=== PATIENT | female | born 1955 | race African-American/Black ===

== ENCOUNTER → 2016-08-11 | Outpatient (CLI) | payer OTHER ==
--- NOTE | 2016-08-11 11:31 | KCIC ---
Bilateral digital screening mammograms with CAD: HISTORY COMPARISON Comparison is made to previous studies dated 05/06/2014 and 04/02/2013. FINDINGS Breast density category B. The skin and nipples show no abnormalities. No abnormal lymph nodes are seen in the axilla. The breast parenchyma shows scattered fibroglandular density. There are no dominant masses, suspicious calcifications or architectural distortions. Benign appearing calcifications are present IMPRESSION No evidence of malignancy. Recommend routine annual mammographic screening. This study was interpreted with the benefit of Computerized Aided Detection (CAD). Mammography is not 100% sensitive in detecting breast cancer. Therefore, a self breast exam and a clinical breast exam are very important. A negative mammogram does not negate a clinically suspicious finding and should not result in a delay in biopsying a clinically suspicious abnormality. BI-RADS category 2. Benign. This patient's information has been entered into a reminder system for the patient to be notified with the results of this examination and a target date for her next mammograms. Electronically signed by: Nicol Castillo MD (Aug 11, 2016 11:29:22)
== END | disposition home or self-care (01) ==
LOC: KCIC MAMMO 07:48
PROVIDERS: ATTEND Obstetrics & Gynecology Gynecology
DX: Z12.31 Encounter for screening mammogram for malignant neoplasm of breast (principal)
CPT/HCPCS: G0202; 77067

== ENCOUNTER → 2018-04-19 | Outpatient (CLI) | payer OTHER ==
--- NOTE | 2018-04-19 12:06 | KCIC ---
Bilateral digital screening mammograms: Reason for examination: Routine screening. Comparison is made to previous studies dated 08/11/2016 and 05/06/2014. Interpretation was made with the benefit of CAD. The skin and nipples show no abnormalities. No abnormal axillary lymph nodes are seen. The breast parenchyma is heterogeneously dense. (Breast density: Category C) There continues to be a small nodular asymmetry anterior medially in the right breast seen best on CC view but probably at the 2:00 position which is stable. There are no new dominant masses, suspicious calcifications or architectural distortion. Scattered benign calcifications are again seen. Impression: No evidence of malignancy. Recommend routine screening. Your patient's mammogram demonstrates that she has dense breast tissue (breast density category C or D), which could hide abnormalities, and if she has other risk factors for breast cancer that have been identified, she might benefit from supplemental screening tests that may be suggested by you as her ordering physician. Dense breast tissue, in and of itself, is a relatively common condition. Therefore, this information is not provided to cause undue concern, but rather to raise your awareness and to promote discussion with your patient regarding the presence of other risk factors, in addition to dense breast tissue. Your patient's mammography results will be sent to her. BI-RADS Category 2: Benign. "Our facility is accredited by the [employer] Mammography [employer]." This patient's information has been entered into a reminder system for the patient to be notified with the results of her examination and a target date for the next mammogram. Electronically signed by: Violette Castillo MD (04/19/2018 12:02 PM) [id number]
== END | disposition home or self-care (01) ==
LOC: KCIC MAMMO 08:01
PROVIDERS: ATTEND Obstetrics & Gynecology Gynecology
DX: Z12.31 Encounter for screening mammogram for malignant neoplasm of breast (principal)
CPT/HCPCS: 77067

== ENCOUNTER → 2019-04-24 | Outpatient (CLI) | payer BC ==
--- NOTE | 2019-04-24 10:16 | KCIC ---
Bilateral digital screening mammograms with 3-D tomosynthesis: Reason for examination: Routine screening. Comparison is made to previous studies dated 04/19/2018 and 08/11/2016. Bilateral mammograms in CC and oblique projections were obtained with 2-D imaging and 3-D tomosynthesis imaging on a Siemens Inspiration unit and reviewed on the workstation. Interpretation was made with the benefit of CAD. The skin and nipples show no abnormalities. No abnormal axillary lymph nodes are seen. The breast parenchyma is heterogeneously dense. (Breast density: Category C.) There continue to be small nodular parenchymal densities bilaterally which are stable. There are no new dominant masses, suspicious calcifications or architectural distortion. Benign calcifications are present. Impression: No evidence of malignancy. Recommend routine screening. Your patient's mammogram demonstrates that she has dense breast tissue (breast density category C or D), which could hide abnormalities, and if she has other risk factors for breast cancer that have been identified, she might benefit from supplemental screening tests that may be suggested by you as her ordering physician. Dense breast tissue, in and of itself, is a relatively common condition. Therefore, this information is not provided to cause undue concern, but rather to raise your awareness and to promote discussion with your patient regarding the presence of other risk factors, in addition to dense breast tissue. Your patient's mammography results will be sent to her. BI-RAD Category 2: Benign. "Our facility is accredited by the [employer] Mammography [employer]." This patient's information has been entered into a reminder system for the patient to be notified with the results of her examination and a target date for the next mammogram. Electronically signed by: Violette Castillo MD (04/24/2019 10:13 AM) [id number]
== END | disposition home or self-care (01) ==
LOC: KCIC MAMMO 07:55
PROVIDERS: ATTEND Obstetrics & Gynecology Gynecology
DX: Z12.31 Encounter for screening mammogram for malignant neoplasm of breast (principal); N64.89 Other specified disorders of breast
CPT/HCPCS: 77063; 77067

== ENCOUNTER → 2020-05-05 | Outpatient (CLI) | payer BC ==
--- NOTE | 2020-05-05 12:31 | KCIC ---
EXAM: Bilateral digital screening mammogram with tomosynthesis. HISTORY: 64-year-old female presents for screening mammography. TECHNIQUE: Full-field digital craniocaudal and mediolateral oblique 2D and 3D tomosynthesis images of both breasts are obtained for evaluation. Computer aided detection was applied. COMPARISON: 04/24/2019 BREAST PARENCHYMAL DENSITY: Level C - Heterogeneously dense. FINDINGS: There is no new suspicious mass, microcalcification or region of architectural distortion. There are scattered areas of nodularity and asymmetry within both breasts which are benign in appeara nce. There are few benign calcifications. IMPRESSION: BI-RADS Category 2: Benign finding(s). RECOMMENDATION: Annual mammography is recommended. If your mammogram demonstrates that you have dense breast tissue, which could hide abnormalities, and if you have other risk factors for breast cancer that have been identified, you might benefit from s upplemental screening tests that may be suggested by your ordering physician. Dense breast tissue, i n and of itself, is a relatively common condition. This information is not provided to cause undue c oncern, but rather to raise your awareness and to promote discussion with your physician regarding th e presence of other risk factors, in addition to dense breast tissue. A report of your mammography re sults will be sent to you and your physician. You should contact your physician if you have any ques tions or concerns regarding this report. Mammography is a sensitive method for finding small breast cancers, but it does not detect them all a nd is not a substitute for careful clinical examination. A negative mammogram does not negate a clin ically suspicious finding and should not result in delay in biopsying a clinically suspicious abnorma lity. PQRS compliance statement - Patient information was entered into a reminder system with a target due date for the next mammogram. "Our facility is accredited by the [employer] Mammography [employer]." Electronically signed by: Rola Barriga MD (05/05/2020 12:29 PM) [id number]
== END ==
LOC: KCIC MAMMO 10:36
PROVIDERS: ATTEND Obstetrics & Gynecology Gynecology
DX: Z12.31 Encounter for screening mammogram for malignant neoplasm of breast (principal)
CPT/HCPCS: 77063; 77067

== ENCOUNTER → 2021-05-05 | Outpatient (CLI) | payer BC ==
--- NOTE | 2021-05-05 16:14 | KCIC ---
Bilateral digital screening mammograms with 3-D tomosynthesis: Reason for examination: Routine screening. Comparison is made to previous studies dated back to 08/11/2016. Bilateral mammograms in CC and oblique projections were obtained with 2-D imaging and 3-D tomosynthes is imaging on a Siemens Inspiration unit and reviewed on the workstation. Interpretation was made wit h the benefit of CAD. The skin and nipples show no abnormalities. No abnormal axillary lymph nodes are seen. The breast par enchyma is heterogeneously dense. (Breast density: Category C.) There appear to be small nodular pare nchymal densities bilaterally. The largest is located posterior laterally in the left breast on cc vi ew at approximately the 3:00 position 12 cm from the nipple and measuring 2.4 cm in greatest dimensio n. This may represent a fibroadenoma. There is a 5 5 mm nodule in the right breast at approximately t he 9:00 position 12 cm from the nipple. There is a 5 mm nodule 11 cm from the nipple at approximately the 6:00 position of the right breast. There is a 7.9 mm nodule at approximately the 2:00 position o f the right breast 9 cm from the nipple. There also appear to be nodules at the 1:00 position 5.5 cm from the nipple in the left breast measuring 8.7 mm size and at the 11:00 position 5 cm from the nipp le in the left breast measuring 9 mm in size. Further evaluation of both breasts with ultrasound is r ecommended. There are no suspicious calcifications seen. There are however scattered benign calcifica tions seen bilaterally. Impression: Nodular densities bilaterally in the breasts. Recommend further evaluation with ultrasound. Your patient's mammogram demonstrates that she has dense breast tissue (breast density category C or D), which could hide abnormalities, and if she has other risk factors for breast cancer that have bee n identified, she might benefit from supplemental screening tests that may be suggested by you as her ordering physician. Dense breast tissue, in and of itself, is a relatively common condition. Therefo re, this information is not provided to cause undue concern, but rather to raise your awareness and t o promote discussion with your patient regarding the presence of other risk factors, in addition to d ense breast tissue. Your patient's mammography results will be sent to her. BI-RAD Category 0: Incomplete. Needs additional imaging evaluation. "Our facility is accredited by the [employer] Mammography Program." This patient's information has been entered into a reminder system for the patient to be notified wit h the results of her examination and a target date for the next mammogram. Electronically signed by: Violette Castillo MD (05/05/2021 4:12 PM) [id number]
== END ==
LOC: KCIC MAMMO 13:52
PROVIDERS: ATTEND Obstetrics & Gynecology Gynecology
DX: Z12.31 Encounter for screening mammogram for malignant neoplasm of breast (principal)
CPT/HCPCS: 77063; 77067

== ENCOUNTER → 2021-05-19 | Outpatient (CLI) | payer BC ==
--- NOTE | 2021-05-19 12:15 | KCIC ---
Bilateral breast ultrasound: Reason for examination: Nodules bilaterally on screening mammogram. Comparison is made to mammographic exam dated 05/05/2021. Bilateral whole breast ultrasound including evaluation of all 4 quadrants and the retroareolar and ax illary regions of both breasts was performed. In the right breast at the 2:00 position 9.5 cm from the nipple, there is a 6.7 x 4.8 mm hypoechoic f ibrocystic type nodule with no abnormal vascularity and line in parallel orientation. At the 6:00 pos ition 4.5 cm from the nipple, there is a 5.2 x 5 mm hypoechoic fibrocystic type nodule with no abnorm al vascularity. At the 9:00 position 9 cm from the nipple, there appear to be 2 small nodules. One no dule has a fibrocystic appearance with no abnormal vascularity and measures 6.2 mm in greatest dimens ion. The second nodule has a more cystic appearance measuring 8.9 mm in greatest dimension. No suspic ious nodules are seen. No abnormal appearing lymph nodes are seen in the axilla. In the left breast at the 1:00 position 5.5 cm from the nipple, there is a small 5.7 mm hypoechoic fi brocystic nodule lying in parallel orientation. At the 3:00 position 5.5 cm from the nipple, there is a small 6 x 5.4 mm hypoechoic fibrocystic lesion. At the 11:00 position 4.5 cm from the nipple, ther e is a 4.6 mm hypoechoic fibrocystic type nodule with no abnormal vascularity. No suspicious-appearin g lesions are seen. No abnormal appearing lymph nodes are seen in the left axilla. IMPRESSION: Bilateral cystic and fibrocystic type nodules which are subcentimeter in size. No suspicious lesions are seen. Recommend 6 month follow-up with bilateral breast ultrasound. BI-RADS Category 3: Probably Benign. "Our facility is accredited by the [employer] Mammography [employer]." This patient's information has been entered into a reminder system for the patient to be notified wit h the results of her examination and a target date for the next mammogram. Electronically signed by: Violette Castillo MD (05/19/2021 12:13 PM) [email or web address]
== END ==
LOC: KCIC US 07:53
PROVIDERS: ATTEND Obstetrics & Gynecology Gynecology
DX: N63.12 Unspecified lump in the right breast, upper inner quadrant (principal); N63.13 Unspecified lump in the right breast, lower outer quadrant; N63.21 Unspecified lump in the left breast, upper outer quadrant; N63.23 Unspecified lump in the left breast, lower outer quadrant; N63.22 Unspecified lump in the left breast, upper inner quadrant
CPT/HCPCS: 76641